=== PATIENT | male | born 1985 | race African-American/Black ===

== ENCOUNTER 2016-11-25 20:09 | Emergency (ER) | payer OTHER ==
[2016-11-25 20:17] VITALS: BP 100/80; PULSE 62; TEMP 98.4; BMI 28.1
[2016-11-25] MEDS ORDERED: IBUPROFEN 600 MG TABLET (FP) PO ONE ×2 (22:18→22:19)
--- NOTE | 2016-11-25 23:08 | PDOC ---
History of Present Illness - General Chief Complaint: Pain, Acute Stated Complaint: FELL INJURED RT LEG Time Seen by Provider: 11/25/16 22:10 History Source: Patient Exam Limitations: No Limitations - History of Present Illness Initial Comments: 11/25/16 23:04 CC knee pain post fall on steps yesterday Occurred: reports: just prior to arrival Severity: reports: mild Pain Location: reports: lower extremity Method of Injury: Yes: fall Past History - Past Medical History Allergies/Adverse Reactions: Allergies Allergy/AdvReac Type Severity Reaction Status Date / Time No Known Allergies Allergy Verified 11/25/16 20:18 Home Medications: Ambulatory Orders Cyclobenzaprine HCl [Flexeril -] 10 mg PO TID PRN #21 tablet 07/23/16 Naproxen [Naprosyn -] 500 mg PO BID PRN #14 tablet 07/23/16 - Surgical History Abdominal Surgery: No Appendectomy: No Cardiac Surgery: No Cholecystectomy: No Gastric Stapling: No GI Surgery: No Lung Surgery: No Neurologic Surgery: No Orthopedic Surgery: No - Immunization History Immunization Up to Date: Yes - Psycho/Social/Smoking Cessation Hx Anxiety: No Suicidal Ideation: No Smoking History: Current some day smoker Have you smoked in the past 12 months: Yes Number of Cigarettes Smoked Daily: 15 Information on smoking cessation initiated: No 'Breaking Loose' booklet given: 07/23/16 Hx Alcohol Use: No Drug/Substance Use Hx: Yes (mariah) Substance Use Type: None Review of Systems - Review of Systems Constitutional: No: Symptoms Reported HEENTM: No: Symptoms Reported, Mouth Swelling Respiratory: No: Symptoms reported Cardiac (ROS): No: Symptoms Reported Musculoskeletal: Yes: Joint Pain, Joint Swelling Neurological: No: Symptoms reported *Physical Exam - Vital Signs Last Vital Signs Temp Pulse Resp BP Pulse Ox 98.4 F 62 20 100/80 98 11/25/16 20:15 11/25/16 20:15 11/25/16 20:15 11/25/16 20:15 11/25/16 20:15 - Physical Exam General Appearance: Yes: Appropriately Dressed. No: Apparent Distress HEENT: positive: TMs Normal, Pharynx Normal Respiratory/Chest: positive: Lungs Clear Musculoskeletal: positive: Other (mild sts to right knee; with tenderness to joint space) ED Treatment Course - RADIOLOGY Radiology Studies Ordered: Category Date Time Status KNEE 2 POS-RIGHT [RAD] Stat Radiology 11/25/16 22:18 Completed - Medications Given in the ED: ED Medications Discontinued Medications Generic Name Dose Route Start Last Admin Trade Name Mame PRN Reason Stop Dose Admin Ibuprofen 600 mg 11/25/16 22:19 11/25/16 22:21 Motrin - PO 11/25/16 22:20 600 mg ONCE ONE Administration Medical Decision Making - Medical Decision Making 11/25/16 23:06 Mild STS to right knee; Xrays note DJD otherwise negative *DC/Admit/Observation/Transfer Diagnosis at time of Disposition: Strain of right knee Qualifiers: Encounter type: initial encounter Qualified Code(s): S86.911A - Strain of unspecified muscle(s) and tendon(s) at lower leg level, right leg, initial encounter - Discharge Dispostion Disposition: HOME Condition at time of disposition: Stable Admit: No - Patient Instructions Additional Instructions: please see local MD 1 week if no better; rest area - Post Discharge Activity Work/School Note: Back to Work
== END 2016-11-25 23:36 | disposition home or self-care (01) ==
LOC: JERFT 20:09
DX: S86.811A Strain of other muscle(s) and tendon(s) at lower leg level, right leg, initial encounter (principal); W10.8XXA Fall (on) (from) other stairs and steps, initial encounter; Y93.89 Activity, other specified; Y92.89 Other specified places as the place of occurrence of the external cause; M17.11 Unilateral primary osteoarthritis, right knee
CPT/HCPCS: 73560-TC-RT; 99281-25

== ENCOUNTER 2017-01-15 04:06 | Emergency (ER) | payer OTHER ==
[2017-01-15 04:59] VITALS: BP 114/66; PULSE 77; TEMP 99; BMI 28.1
[2017-01-15] MEDS ORDERED: IBUPROFEN 600 MG TABLET (FP) PO ONE ×2 (05:25→05:48)
--- NOTE | 2017-01-15 05:25 | PDOC ---
History of Present Illness - General Chief Complaint: Cold Symptoms Stated Complaint: BODY ACHES Time Seen by Provider: 01/15/17 04:48 - History of Present Illness Initial Comments: 01/15/17 05:25 CHIEF COMPLAINT: body aches, fatigue, URI symptoms HISTORY OF PRESENT ILLNESS: 31 yo M with no PMH presents to ED "feeling exhausted." Patient reports that his symptoms began yesterday and include runny nose, dry cough, and "my whole body hurts." He states that he has been taking Theraflu, "2 pills of Motrin" and Dayquil and Nyquil with little relief. He denies any shortness of breath, chest pain, nausea, vomiting or diarrhea. He reports that he goes to sleep "and wakes up wet, and then I shower, go back to sleep, and wake up wet again." No recent travel or sick contacts. PAST MEDICAL HISTORY: Denies past medical history FAMILY HISTORY: Denies SOCIAL HISTORY: Current smoker 10 cigs daily. Denies alcohol, illicit drug use. SURGICAL HISTORY: Denies ALLERGIES: No known drug allergies REVIEW OF SYSTEMS General/Constitutional: Denies fever or chills. Denies weakness, weight change. HEENT: Denies change in vision. Denies ear pain or discharge. Denies sore throat. Cardiovascular: Denies chest pain or shortness of breath. Respiratory: Cough x 1 day. Denies wheezing, or hemoptysis. Gastrointestinal: Denies nausea, vomiting, diarrhea or constipation. Denies rectal bleeding. Genitourinary: Denies dysuria, frequency, or change in urination. Musculoskeletal: Denies joint or muscle swelling or pain. Denies neck or back pain. Skin and breasts: Denies rash or easy bruising. PHYSICAL EXAM General Appearance: Well-appearing, appropriately dressed. No apparent distress , no intoxication. HEENT: EOMI, PERRLA, normal ENT inspection, normal voice, TMs normal, pharynx normal. No conjunctival pallor. No photophobia, scleral icterus. Neck: Supple. Trachea midline. No tenderness, rigidity, carotid bruit, stridor , lymphadenopathy, or thyromegaly. Respiratory/Chest: Lungs CTAB. Cardiovascular: RRR. S1, S2. Gastrointestinal/Abdominal: Normal bowel sounds. Abdomen soft, non-distended. No tenderness or rebound tenderness. No organomegaly, pulsatile mass, guarding , hernia, hepatomegaly, splenomegaly. Musculoskeletal/Extremities: Normal inspection. FROM of all extremities, normal capillary refill. Pelvis Stable. No CVA tenderness. No tenderness to extremities, pedal edema, swelling, erythema or deformity. Integumentary: Appropriate color, dry, warm. No cyanosis, erythema, jaundice or rash Neurologic: vault attendant II-XII intact. Fully oriented, alert. Appropriate mood/affect. Motor strength 5/5. No appreciable EOM palsy, facial droop or sensory deficit. 01/15/17 05:36 Past History - Past Medical History Allergies/Adverse Reactions: Allergies Allergy/AdvReac Type Severity Reaction Status Date / Time No Known Allergies Allergy Verified 01/15/17 05:04 Home Medications: Ambulatory Orders Cyclobenzaprine HCl [Flexeril -] 10 mg PO TID PRN #21 tablet 07/23/16 Naproxen [Naprosyn -] 500 mg PO BID PRN #14 tablet 07/23/16 Naproxen [Naprosyn -] 500 mg PO BID #14 tablet 11/25/16 Dextromethorphan HBr [Robitussin] 15 mg PO QID PRN #20 capsule 01/15/17 Ibuprofen [Motrin -] 600 mg PO TID PRN #30 tablet 01/15/17 Loratadine [Claritin -] 10 mg PO DAILY #30 tablet 01/15/17 Pseudoephedrine HCl [Sudafed 12-Hour] 120 mg PO BID #20 tablet.er 01/15/17 - Surgical History Abdominal Surgery: No Appendectomy: No Cardiac Surgery: No Cholecystectomy: No Gastric Stapling: No GI Surgery: No Lung Surgery: No Neurologic Surgery: No Orthopedic Surgery: No - Immunization History Immunization Up to Date: Yes - Psycho/Social/Smoking Cessation Hx Anxiety: No Suicidal Ideation: No Smoking History: Current every day smoker Have you smoked in the past 12 months: Yes Number of Cigarettes Smoked Daily: 10 Information on smoking cessation initiated: No 'Breaking Loose' booklet given: 07/23/16 Hx Alcohol Use: No Drug/Substance Use Hx: No Substance Use Type: None *Physical Exam - Vital Signs Last Vital Signs Temp Pulse Resp BP Pulse Ox 99.0 F 77 14 114/66 98 01/15/17 04:56 01/15/17 04:56 01/15/17 04:56 01/15/17 04:56 01/15/17 04:56 Medical Decision Making - Medical Decision Making 01/15/17 05:40 31 yo M with no PMH presents to ED "feeling exhausted." Patient reports that his symptoms began yesterday and include runny nose, dry cough, and "my whole body hurts." Patient exam unremarkable. Likely acute viral illness. -Clariting 10 mg daily -Sudafed -Dextromethorphan Advised patient to take medications as prescribed and get plenty of rest and fluids and to f/u with PCP if symptoms persist. Advised patient of signs and symptoms for return to ER; patient verbalized understanding and agrees to plan. *DC/Admit/Observation/Transfer Diagnosis at time of Disposition: Viral syndrome - Discharge Dispostion Admit: No - Prescriptions Prescriptions: Loratadine [Claritin -] 10 mg PO DAILY #30 tablet Ibuprofen [Motrin -] 600 mg PO TID PRN #30 tablet PRN Reason: body aches/fever Dextromethorphan HBr [Robitussin] 15 mg PO QID PRN #20 capsule PRN Reason: Cough Pseudoephedrine HCl [Sudafed 12-Hour] 120 mg PO BID #20 tablet.er - Referrals Referrals: Stacey Diallo MD [Primary Care Provider] - - Patient Instructions Printed Discharge Instructions: DI for Viral Syndrome Additional Instructions: Please take medications as prescribed. As discussed, you need to get plenty of rest and fluids. If your symptoms persist past 7-10 days, please follow up with Dr. Humphries for further evaluation. If you develop fever that does not go down Motrin, nausea, vomiting, diarrhea, or any new or worsening symptoms, please return to the ER. - Post Discharge Activity Work/School Note: Back to Work
== END 2017-01-15 06:17 | disposition home or self-care (01) ==
LOC: JER 04:06
DX: B34.9 Viral infection, unspecified (principal)
CPT/HCPCS: 99281-25

== ENCOUNTER 2017-12-19 02:03 | Emergency (ER) | payer SELFPAY ==
--- NOTE | 2017-12-19 02:32 | PDOC ---
Attending Attestation - Resident Resident Name: Radhames Nieto - ED Attending Attestation I have performed the following: I have examined & evaluated the patient, The case was reviewed & discussed with the resident, I agree w/resident's findings & plan, Exceptions are as noted - HPI HPI: 12/19/17 06:08 Mr Pierre is a 32 yo M no significant past medical history He reports body aches and chills x 1 day. (+) subjective fevers and diaphoresis cough with yellow sputum He has noticed chest burning, particularly with cogh Has not taken motrin or tylenol No ill contacts No recent travel - Physicial Exam PE: 12/19/17 06:17 GEN: NAD, awake, alert and laying in bed HEENT: EOMI, LARY, moist mucosa, no erythema NECK: Soft, no lymphadenopathy LUNGS: CTA b/l, no wheezes, rales, rhonchi noted CARDIAC: RRR, no murmurs appreciated ABD: Soft, NT/ND, no guarding, no rebound, no masses appreciated EXT: No edema, DP pulses 2+ SKIN: No rashes or lesions seen - Medical Decision Making 12/19/17 06:17 Laboratory Tests 12/19/17 12/19/17 03:29 03:29 WBC 10.5 H D Hgb 13.3 Hct 39.4 Plt Count 217 BUN 6 L D Creatinine 0.9 CXR (prelim): no consolidation Influenza negative Pt given IV hydration and motrin Will discharge to home Likely viral syndrome Follow up with PMD
[2017-12-19] MEDS ORDERED: RANITIDINE HCL 150 MG TABLET (FP) PO ONE (02:36)
[2017-12-19 02:40] VITALS: BMI 28.1
--- NOTE | 2017-12-19 02:44 | PDOC ---
History of Present Illness - General Chief Complaint: Respiratory Stated Complaint: BODY ACHES,CHILLS Time Seen by Provider: 12/19/17 02:22 - History of Present Illness Initial Comments: 12/19/17 02:38 32yo M with no significant history who presents today for body aches and chills. He reports this started about 1 day ago with some subjective fevers and sweating at night. Pt reports he took a shower and then continued to be diaphoretic. In addition, pt endorses yellow sputum production, diarrhea without blood, and some substernal burning chest discomfort. Pt states he hasn' t been taking anything at home for his fevers. Pt denies any sick contacts currently. Pt denies headaches, n/v, ear pain, SOB, wheezing, palpitations, abdominal pain, dysuria, and polyuria Past History - Past Medical History Allergies/Adverse Reactions: Allergies Allergy/AdvReac Type Severity Reaction Status Date / Time No Known Allergies Allergy Verified 12/19/17 02:39 Home Medications: Ambulatory Orders Cyclobenzaprine HCl [Flexeril -] 10 mg PO TID PRN #21 tablet 07/23/16 Naproxen [Naprosyn -] 500 mg PO BID PRN #14 tablet 07/23/16 Naproxen [Naprosyn -] 500 mg PO BID #14 tablet 11/25/16 Dextromethorphan HBr [Robitussin] 15 mg PO QID PRN #20 capsule 01/15/17 Ibuprofen [Motrin -] 600 mg PO TID PRN #30 tablet 01/15/17 Loratadine [Claritin -] 10 mg PO DAILY #30 tablet 01/15/17 Pseudoephedrine HCl [Sudafed 12-Hour] 120 mg PO BID #20 tablet.er 01/15/17 - Surgical History Abdominal Surgery: No Appendectomy: No Cardiac Surgery: No Cholecystectomy: No Gastric Stapling: No GI Surgery: No Lung Surgery: No Neurologic Surgery: No Orthopedic Surgery: No - Immunization History Immunization Up to Date: Yes - Suicide/Smoking/Psychosocial Hx Smoking History: Current every day smoker Have you smoked in the past 12 months: Yes Number of Cigarettes Smoked Daily: 10 'Breaking Loose' booklet given: 07/23/16 Hx Alcohol Use: No Drug/Substance Use Hx: No Substance Use Type: None Review of Systems - Review of Systems Constitutional: Yes: Chills, Fever. No: Loss of Appetite HEENTM: Yes: See HPI, Nose Congestion. No: Blurred Vision, Ear Pain, Throat Pain Respiratory: Yes: Productive cough. No: Shortness of Breath, Wheezing Cardiac (ROS): No: Chest Pain, Lightheadedness, Palpitations ABD/GI: Yes: Diarrhea. No: Constipated, Nausea, Vomiting, Abdominal cramping : No: Dysuria, Frequency, Flank Pain Musculoskeletal: No: Back Pain, Neck Pain Integumentary: No: Rash Neurological: No: Headache, Numbness, Tingling, Dizziness *Physical Exam - Physical Exam Comments: 12/19/17 02:46 GEN: NAD, awake, alert and laying in bed HEENT: EOMI, LARY, moist mucosa, no erythema and no plaques in posterior oropharynx NECK: Soft, no lymphadenopathy LUNGS: CTA b/l, no wheezes, rales, rhonchi noted CARDIAC: RRR, no murmurs appreciated ABD: Soft, NT/ND, no guarding, no rebound, no masses appreciated EXT: No edema, DP pulses 2+ SKIN: No rashes or lesions seen Heart Score/ECG Review #1 General ECG Interpretation: Sinus Rhythm, Normal Rate, Normal Intervals, No acute ischemic changes 12/19/17 04:06 Deep R wave in V2-V4 noted. QTc 405ms ED Treatment Course - LABORATORY CBC & Chemistry Diagram: 12/19/17 03:29 12/19/17 03:29 Medical Decision Making - Medical Decision Making 12/19/17 02:44 Highly suspicious for viral syndrome --CBC with diff --CMP --Flu swab (recent resurgence of Influenza B) Due to epigastric burning sensation --EKG despite doubting any ACS --Zantac PO 12/19/17 04:[address] abnormalities CBC with WBC 10.4 On reassessment pt's substernal burning has gotten better with zantac; pt feels dehydrated 12/19/17 04:14 Preliminary rapid flu negative for A and B 12/19/17 04:38 CXR grossly normal; no opacities or infiltrates noted 12/19/17 05:16 Motrin given for body aches. Can be discharged home. Work note given for Thursday *DC/Admit/Observation/Transfer Diagnosis at time of Disposition: Viral syndrome - Discharge Dispostion Disposition: HOME Condition at time of disposition: Stable Admit: No - Referrals Referrals: Stacey Diallo MD [Primary Care Provider] - - Patient Instructions Additional Instructions: You were seen in the ED for your fevers and body aches which are due to a virus. Your chest Xray did not show any pneumonia Your flu swab showed no flu Your EKG was normal and unchanged from your previous one If you feel feverish again please take over the counter tylenol as directed Continue to stay hydrated and rest to get over your virus If your symptoms worsen, please feel free to come back to the ED - Post Discharge Activity Forms/Work/School Notes: Back to Work
[2017-12-19] MEDS ORDERED: RANITIDINE HCL 150 MG TABLET (FP) ONE (03:09)
[2017-12-19 03:52] LABS: BASO % 0.6 % (0-2.0); EOS % 1.6 % (0-4.5); HEMATOCRIT 39.4 % (35.4-49); HEMOGLOBIN 13.3 GM/dL (11.7-16.9); LYMPH % 9.8 % (8-40); MCH 29.1 pg (25.7-33.7); MCHC 33.9 g/dl (32.0-35.9); MEAN PLT VOLUME 8.1 fl (7.5-11.1); MONO % 6.2 % (3.8-10.2); NEUT % 81.8 % (42.8-82.8); PLATELET COUNT 217 K/MM3 (134-434); RBC 4.59 M/mm3 (4.00-5.60); RDW 13.6 % (11.9-15.9); WHITE BLOOD COUNT 10.5 K/mm3 (4.0-10.0)
[2017-12-19] MEDS ORDERED: SODIUM CHLORIDE 1,000 ML IV STA (04:03)
[2017-12-19 04:17] LABS: ALBUMIN 3.7 g/dl (3.4-5.0); ANION GAP 6 (8-16); BILIRUBIN,TOTAL 0.8 mg/dL (0.2-1.0); BLOOD UREA NITROGEN 6 mg/dL (7-18); CALCIUM 8.7 mg/dL (8.5-10.1); CHLORIDE 105 mmol/L (98-107); CO2 30 mmol/L (21-32); CREATININE 0.9 mg/dL (0.7-1.3); GLUCOSE,RANDOM 89 mg/dL (74-106); POTASSIUM 3.4 mmol/L (3.5-5.1); SGOT/AST 21 U/L (15-37); SGPT/ALT 16 U/L (12-78); SODIUM 141 mmol/L (136-145); TOT PROT 7.2 g/dl (6.4-8.2)
[2017-12-19 04:18] LABS: ALK PHOS 48 U/L (45-117)
[2017-12-19] MEDS ORDERED: IBUPROFEN 600 MG TABLET (FP) PO ONE ×2 (05:01→05:12)
[2017-12-19 05:28] VITALS: BP 104/60; PULSE 70; TEMP 98.4
--- NOTE | 2017-12-19 09:50 | EKG ---
Test Reason : Blood Pressure : / mmHG Vent. Rate : 065 BPM Atrial Rate : 065 BPM P-R Int : 140 ms QRS Dur : 078 ms QT Int : 390 ms P-R-T Axes : 076 240 055 degrees QTc Int : 405 ms NORMAL SINUS RHYTHM RIGHT SUPERIOR AXIS DEVIATION ABNORMAL ECG NO PREVIOUS ECGS AVAILABLE Confirmed by AMANDA AHUMADA MD ([id number]) on 12/19/2017 9:50:03 AM Referred By: Confirmed By:AMANDA AHUMADA MD
== END 2017-12-19 05:33 | disposition home or self-care (01) ==
LOC: JER 02:03
PROC: 3E0337Z Introduction of Electrolytic and Water Balance Substance into Peripheral Vein, Percutaneous Approach (ICD-10-PCS; principal; 2017-12-19)
DX: B34.9 Viral infection, unspecified (principal); F17.210 Nicotine dependence, cigarettes, uncomplicated
CPT/HCPCS: 36415; 71045-TC-FY; 80053; 85025; 87804; 93005; 93010; 99282-25; J7030

== ENCOUNTER 2018-05-16 19:19 | Emergency (ER) | payer SELFPAY ==
[2018-05-16 19:23] VITALS: BP 94/51; PULSE 72; TEMP 98.4; BMI 25.0
[2018-05-16] MEDS ORDERED: CLINDAMYCIN HCL 150 MG CAPSULE (FP) PO ONE (20:06)
[2018-05-16] MEDS ORDERED: KETOROLAC TROMETHAMINE 60 MG/2 ML VIAL IM ONE (20:07)
--- NOTE | 2018-05-16 20:11 | PDOC ---
History of Present Illness - General Chief Complaint: Abscess Boil Stated Complaint: ABSCESS BOIL Time Seen by Provider: 05/16/18 19:32 History Source: Patient Exam Limitations: Clinical Condition - History of Present Illness Initial Comments: 05/16/18 20:05 Patient with no sig past medical history present with abscess to left chin area which he reported started as a pimple and has worsened in the last 3 days. Patient believe is started as an ingrown hair from the [place]. Denies fever or any other symptoms Timing/Duration: reports: getting worse Severity: Yes: moderate Location: reports: face Past History - Past Medical History Allergies/Adverse Reactions: Allergies Allergy/AdvReac Type Severity Reaction Status Date / Time No Known Allergies Allergy Verified 05/16/18 19:23 Home Medications: Ambulatory Orders Clindamycin [Cleocin -] 300 mg PO TID #21 capsule 05/16/18 Ibuprofen 800 mg PO Q8H PRN #20 tablet 05/16/18 COPD: No - Surgical History Abdominal Surgery: No Appendectomy: No Cardiac Surgery: No Cholecystectomy: No Gastric Stapling: No GI Surgery: No Lung Surgery: No Neurologic Surgery: No Orthopedic Surgery: No - Immunization History Immunization Up to Date: Yes - Suicide/Smoking/Psychosocial Hx Smoking History: Never smoked Have you smoked in the past 12 months: Yes Number of Cigarettes Smoked Daily: 10 'Breaking Loose' booklet given: 07/23/16 Hx Alcohol Use: No Drug/Substance Use Hx: No Substance Use Type: None Review of Systems - Review of Systems Able to Perform ROS?: Yes Is the patient limited Maldivian proficient: No Constitutional: No: Chills, Fever HEENTM: Yes: Other (abscess to left chin area) Respiratory: No: Symptoms reported Cardiac (ROS): No: Symptoms Reported ABD/GI: No: Symptoms Reported Musculoskeletal: Yes: Muscle Pain (over left chin area of abscess) Integumentary: Yes: Lumps (abscess to left chin area), Other All Other Systems: Reviewed and Negative *Physical Exam - Vital Signs Last Vital Signs Temp Pulse Resp BP Pulse Ox 98.4 F 72 18 94/51 97 05/16/18 19:21 05/16/18 19:21 05/16/18 19:21 05/16/18 19:21 05/16/18 19:21 - Physical Exam Comments: 05/16/18 20:09 GENERAL: Well developed, well nourished. Awake and alert. No acute distress. HEENT: 4 cm hard fluctuant abscess to left lateral side of chin mild erythema over abscess.normocephalic, atraumatic. NECK: Supple. Full ROM. CARDIOVASCULAR: Regular rate and rhythm. No murmurs, rubs, or gallops. Distal pulses are 2+ and symmetric. PULMONARY: No evidence of respiratory distress. Lungs clear to auscultation bilaterally. No wheezing, rales or rhonchi. ABDOMINAL: Soft. Non-tender. Non-distended. No rebound or guarding. No organomegaly. Normoactive bowel sounds. SKIN: 4 cm hard fluctuanct abscess to left lateral side of chin mild erythema over abscess. Warm and dry. Normal capillary refill. No rashes. No jaundice. NEUROLOGICAL: Alert, awake, appropriate. Gait is normal without ataxia. PSYCHIATRIC: Cooperative. Good eye contact. Appropriate mood and affect. General Appearance: Yes: Nourished, Appropriately Dressed. No: Apparent Distress Procedures - Incision and Drainage I&D Site: Left: Other (lateral chin abscess) Betadine cleansed: Yes Anesthesia: 1% Lidocaine Volume(ml): 3 Blade Size: 11 Attempts: 1 Iodinated Packin/2 in Plain Packing: Yes Complications: none Dressing: Yes Progress: 05/16/18 20:12 4 cm had clots when abscess to lateral side of left chin clean with Betadine. Abscess infiltrated with 1% lidocaine. Incision made with #11 blade. Purulent drainage obtained from abscess. Wound culture taken. Wound packing place and abscess. Abscess covered with 4 x 4 gauze and adhesive tape pressure dressing. Patient tolerated procedure well Medical Decision Making - Medical Decision Making 05/16/18 20:13 Patient with no significant past medical history three-day history of worsening abscess to left lateral chin. I&D of abscess done. One dose of clindamycin 300 mg given. Toradol 60 mg IM for pain. Patient discharged home on Clinda 3 times a day for week. Patient to follow-up in 2 days for wound packing removal *DC/Admit/Observation/Transfer Diagnosis at time of Disposition: Facial abscess, Carbuncle of face - Discharge Dispostion Disposition: HOME Condition at time of disposition: Stable Decision to Admit order: No - Prescriptions Prescriptions: Clindamycin [Cleocin -] 300 mg PO TID #21 capsule Ibuprofen 800 mg PO Q8H PRN #20 tablet PRN Reason: pain - Referrals - Patient Instructions Printed Discharge Instructions: DI for Incision and Drainage of a Skin Abscess Additional Instructions: Take prescribed medications as prescribed. Apply heat to abscess area 2-3 times a day for 5-10 minutes., To emergency room in 2 days for packing removal. - Post Discharge Activity Forms/Work/School Notes: Back to Work
[2018-05-16] MEDS ORDERED: KETOROLAC TROMETHAMINE 60 MG/2 ML VIAL ONE (20:12)
[2018-05-16] MEDS ORDERED: CLINDAMYCIN HCL 150 MG CAPSULE (FP) ONE (20:14)
== END 2018-05-16 20:20 | disposition home or self-care (01) ==
LOC: JERFT 19:19
PROC: 0H91XZZ Drainage of Face Skin, External Approach (ICD-10-PCS; principal; 2018-05-16)
DX: L02.01 Cutaneous abscess of face (principal); L02.03 Carbuncle of face
CPT/HCPCS: 87070; 87205; 99281-25

== ENCOUNTER 2018-05-18 21:27 | Emergency (ER) | payer SELFPAY ==
--- NOTE | 2018-05-18 21:31 | PDOC ---
Rapid Medical Evaluation Chief Complaint: Wound Time Seen by Provider: 05/18/18 21:29 Medical Evaluation: Allergies Allergy/AdvReac Type Severity Reaction Status Date / Time No Known Allergies Allergy Verified 05/16/18 19:23 05/18/18 21:30 I have performed a brief in person evaluation of this patient. The patient presents with a CC of: Wound rck HPI: Pt is a 32 YO male who is here for a f/u on a facial abscess on the left side. Pt is currently taking abx. PE: Skin: 6 cm abscess to left lower mandible. Heart: RRR Lungs: Clear MS: Moves all extremities without difficulty Neuro: Appropriate affect Psych: appropriate affect I have ordered: nothing ordered at this time. The patient will proceed to the ED for further evaluation. Discharge Disposition - Diagnosis Abscess - Referrals - Patient Instructions - Post Discharge Activity
[2018-05-18 21:33] VITALS: BP 101/49; PULSE 59; TEMP 98; BMI 26.6
--- NOTE | 2018-05-18 22:30 | PDOC ---
Suture Removal/Wound Check HPI - History of Present Illness Chief Complaint: Wound Stated Complaint: FOLLOW UP Time Seen by Provider: 05/18/18 21:29 History Source: Yes: Patient Exam Limitations: Yes: No Limitations Treated at: [facility] ED - Previous ED Treatment Type of procedure performed on last visit: Yes: I&D of Abscess Past History - Travel Traveled outside of the country in the last 30 days: No Close contact w/someone who was outside of country & ill: No - Past Medical History Allergies/Adverse Reactions: Allergies Allergy/AdvReac Type Severity Reaction Status Date / Time No Known Allergies Allergy Verified 05/16/18 19:23 Home Medications: Ambulatory Orders Clindamycin [Cleocin -] 300 mg PO TID #21 capsule 05/16/18 Ibuprofen 800 mg PO Q8H PRN #20 tablet 05/16/18 COPD: No - Surgical History Abdominal Surgery: No Appendectomy: No Cardiac Surgery: No Cholecystectomy: No Gastric Stapling: No GI Surgery: No Lung Surgery: No Neurologic Surgery: No Orthopedic Surgery: No - Immunization History Immunization Up to Date: Yes - Suicide/Smoking/Psychosocial Hx Smoking History: Current every day smoker Have you smoked in the past 12 months: Yes Number of Cigarettes Smoked Daily: 20 Information on smoking cessation initiated: No 'Breaking Loose' booklet given: 07/23/16 Hx Alcohol Use: No Drug/Substance Use Hx: No Substance Use Type: None Suture Removal/Wound Check PE - Physical Exam Laceration/Wound Check Symptoms: reports: Discharge (sero sanguanous), Improved Current Severity Level: None Maximum Severity Level: None Location of Laceration/Wound: left: Jaw (I&D two days ago, packin in place with drainage) *Review of Systems - Review of Systems Able to Perform ROS?: Yes Constitutional: No: Chills, Fever, Weakness Integumentary: Yes: Other (Packin present to L jaw from I&D) *Physical Exam - Vital Signs Last Vital Signs Temp Pulse Resp BP Pulse Ox 98.0 F 59 L 18 101/49 100 05/18/18 21:30 05/18/18 21:30 05/18/18 21:30 05/18/18 21:30 05/18/18 21:30 - Physical Exam General Appearance: Yes: Nourished, Appropriately Dressed. No: Apparent Distress Neck: positive: Trachea midline, Normal Thyroid, Supple. negative: Tender, Rigid, Decreased range of motion, Lymphadenopathy (R), Lymphadenopathy (L) Integumentary: positive: Normal Color, Dry, Warm, Swelling (and induration to the L jaw near I&D site) Neurologic: positive: Fully Oriented, Alert, Normal Mood/Affect, Normal Response Medical Decision Making - Medical Decision Making 05/18/18 22:25 Patient is a 32-year-old male who presents to emergency department today for a wound check. Patient was seen 2 days ago for an incision and drainage to the left jaw. Packing intact to I&D site. Patient with a mixture of purulent and bloody drainage. Patient notes that the size of the I&D site has significantly decreased from previous visit. Packing removed emergency department and the I&D site was flushed with normal saline. No more purulent drainage noted. Patient still with induration to the left lower jaw around the I&D site. Patient states he only picked up his antibiotics today. Strict return precautions given as patient only on 1 day of antibiotics. I discussed the physical exam findings, ancillary test results and final diagnoses with the patient. I answered all of the patient's questions. The patient was satisfied with the care received and felt comfortable with the discharge plan and treatment plan. The Patient agrees to follow up with the primary care physician/specialist within 24-72 hours. Return precautions were given. *DC/Admit/Observation/Transfer Diagnosis at time of Disposition: Wound check, abscess - Discharge Dispostion Disposition: HOME Condition at time of disposition: Stable Decision to Admit order: No - Referrals Referrals: Will Iqbal MD [Staff Physician] - - Patient Instructions Printed Discharge Instructions: DI for Skin Abscess Additional Instructions: You have the packing removed from you're abscess today. Please continue taking your antibiotics as previously prescribed. Take the entire dose even if you feel better. He may take Motrin 600 mg every 6 hours as needed for pain. Please follow-up with your primary care doctor this week. Return to emergency department if you have worsening pain around the area, increased purulent drainage despite antibiotic treatment, increased swelling to the site, or if you have any changes in her symptoms. - Post Discharge Activity Forms/Work/School Notes: Back to Work
== END 2018-05-18 22:38 | disposition home or self-care (01) ==
LOC: JERFT 21:27
DX: Z48.817 Encounter for surgical aftercare following surgery on the skin and subcutaneous tissue (principal); Z48.01 Encounter for change or removal of surgical wound dressing
CPT/HCPCS: 99281-25

== ENCOUNTER 2018-10-26 11:51 | Emergency (ER) | payer SELFPAY ==
[2018-10-26 12:08] VITALS: BP 101/59; PULSE 58; TEMP 97.4; BMI 29.0
--- NOTE | 2018-10-26 14:04 | PDOC ---
History of Present Illness - General Chief Complaint: Pain Stated Complaint: LT FOOFT INJURY Time Seen by Provider: 10/26/18 12:54 - History of Present Illness Initial Comments: 10/26/18 13:58 33-year-old male presents for evaluation of left foot pain after he describes an inversion injury which occurred last night while walking down steps. He points the lateral aspect of the left foot as the area of his discomfort. Past History - Past Medical History Allergies/Adverse Reactions: Allergies Allergy/AdvReac Type Severity Reaction Status Date / Time No Known Allergies Allergy Verified 05/16/18 19:23 Home Medications: Ambulatory Orders Clindamycin [Cleocin -] 300 mg PO TID #21 capsule 05/16/18 Ibuprofen 800 mg PO Q8H PRN #20 tablet 05/16/18 Pantoprazole Sodium [Protonix -] 40 mg PO DAILY #14 tablet.ec 05/20/18 COPD: No - Surgical History Abdominal Surgery: No Appendectomy: No Cardiac Surgery: No Cholecystectomy: No Gastric Stapling: No GI Surgery: No Lung Surgery: No Neurologic Surgery: No Orthopedic Surgery: No - Immunization History Immunization Up to Date: Yes - Suicide/Smoking/Psychosocial Hx Smoking History: Current every day smoker Have you smoked in the past 12 months: No Number of Cigarettes Smoked Daily: 10 Information on smoking cessation initiated: No 'Breaking Loose' booklet given: 07/23/16 Hx Alcohol Use: No Drug/Substance Use Hx: Yes ([place]) Substance Use Type: None Review of Systems - Review of Systems Musculoskeletal: Yes: See HPI, Joint Pain *Physical Exam - Vital Signs Last Vital Signs Temp Pulse Resp BP Pulse Ox 97.4 F L 58 L 20 101/59 L 97 10/26/18 12:04 10/26/18 12:04 10/26/18 12:04 10/26/18 12:04 10/26/18 12:04 - Physical Exam Comments: 10/26/18 13:59 Left foot skin color and temperature are normal there is full knee range of motion and ankle range of motion. There is no tenderness about the knee proximal fibula or along its distal coarse. No tenderness about the medial or lateral malleolus base of the fifth metatarsal navicular or ATFL. There is mild tenderness over the third fourth and fifth MTPJ's there are no gross sensorimotor deficits. He is neurovascularly intact. Moderate Sedation - Procedure Monitoring Vital Signs: Procedure Monitoring Vital Signs Temperature 97.4 F L 10/26/18 12:04 Pulse Rate 58 L 10/26/18 12:04 Respiratory Rate 20 10/26/18 12:04 Blood Pressure 101/59 L 10/26/18 12:04 O2 Sat by Pulse Oximetry (%) 97 10/26/18 12:04 ED Treatment Course - RADIOLOGY Radiology Studies Ordered: Category Date Time Status FOOT-LEFT [RAD] Stat Radiology 10/26/18 12:55 Taken Medical Decision Making - Medical Decision Making 10/26/18 14:00 No evidence of fracture trauma or destructive process on radiograph today. This is a foot sprain. Weight-bear as tolerated with use of a Simeon wrap Bow shoe as well as crutches. Follow-up with or that one to 2 days for further evaluation and treatment options. *DC/Admit/Observation/Transfer Diagnosis at time of Disposition: Sprain of foot, left - Discharge Dispostion Disposition: HOME Condition at time of disposition: Stable Decision to Admit order: No - Referrals Referrals: Ritesh Woods DO [Staff Physician] - - Patient Instructions Printed Discharge Instructions: DI for Foot Sprain Additional Instructions: He may weight-bear as tolerated with use of crutches and the Bow shoe. Please follow-up with orthopedic surgery in 2-3 days for further evaluation and treatment options. I have reached out orthopedic surgery and they are expecting her call and will continue the soonest available appointment at your convenience. Tylenol Motrin as directed for pain - Post Discharge Activity Forms/Work/School Notes: Back to Work
== END 2018-10-26 14:11 | disposition home or self-care (01) ==
LOC: JERFT 11:51
PROC: 2W3TX1Z Immobilization of Left Foot using Splint (ICD-10-PCS; principal; 2018-10-26)
PROC: 2W3RX1Z Immobilization of Left Lower Leg using Splint (ICD-10-PCS; 2018-10-26)
DX: S93.602A Unspecified sprain of left foot, initial encounter (principal); X50.1XXA Overexertion from prolonged static or awkward postures, initial encounter; Y93.89 Activity, other specified; Y92.89 Other specified places as the place of occurrence of the external cause; Y99.8 Other external cause status
CPT/HCPCS: 73630-TC-LT; 99281-25

== ENCOUNTER 2019-08-23 01:23 | Emergency (ER) | payer OTHER ==
[2019-08-23 02:55] VITALS: BP 104/54; PULSE 61; TEMP 98.1; BMI 29.7
--- NOTE | 2019-08-23 03:12 | PDOC ---
*Physical Exam - Vital Signs Last Vital Signs Temp Pulse Resp BP Pulse Ox 98.1 F 61 20 104/54 L 96 08/23/19 01:23 08/23/19 01:23 08/23/19 01:23 08/23/19 01:23 08/23/19 01:23 Medical Decision Making - Medical Decision Making 08/23/19 03:12 Patient seen by the advanced practice provider under my direct supervision. Ancillary testing reviewed as necessary. I agree with plan as outlined by the advanced practice provider. Discharge - Discharge Information Problems reviewed: Yes Clinical Impression/Diagnosis: Thigh abscess Condition: Fair Disposition: HOME - Additional Discharge Information Prescriptions: Cephalexin 250 mg PO QID #30 capsule Sulfamethoxazole/Trimethoprim [Bactrim Ds -] 1 tab PO BID #14 tablet - Follow up/Referral - Patient Discharge Instructions Patient Printed Discharge Instructions: DI for Incision and Drainage of a Skin Abscess Additional Instructions: Keep dressing on overnight. Warm compresses 15-20 minutes at a time 3-4 times a day. warm showers. keep packing in place. you may change the outside guaze if it gets soiled Complete course of antibiotic therapy as prescribed Return to ED 2 days for a wound evaluation and pack removal. Return to ED immediately if any signs of infection such as fever, increasing pain, swelling, streaking redness, or if symptoms worsen or any concerns. - Post Discharge Activity Work/Back to School Note: Back to Work
--- NOTE | 2019-08-23 03:48 | PDOC ---
History of Present Illness - General Chief Complaint: Abscess Boil Stated Complaint: PAIN TO RIGHT LEG Time Seen by Provider: 08/23/19 03:02 History Source: Patient - History of Present Illness Initial Comments: 08/23/19 03:12 33 year old male with right inner thigh abscess reports started after shaving the legs. denies fever/ chills./ Past History - Past Medical History Allergies/Adverse Reactions: Allergies Allergy/AdvReac Type Severity Reaction Status Date / Time No Known Allergies Allergy Verified 08/23/19 02:43 Home Medications: Ambulatory Orders Clindamycin [Cleocin -] 300 mg PO TID #21 capsule 05/16/18 Ibuprofen 800 mg PO Q8H PRN #20 tablet 05/16/18 Pantoprazole Sodium [Protonix -] 40 mg PO DAILY #14 tablet.ec 05/20/18 Cephalexin 250 mg PO QID #30 capsule 08/23/19 Sulfamethoxazole/Trimethoprim [Bactrim Ds -] 1 tab PO BID #14 tablet 08/23/19 COPD: No - Surgical History Abdominal Surgery: No Appendectomy: No Cardiac Surgery: No Cholecystectomy: No Gastric Stapling: No GI Surgery: No Lung Surgery: No Neurologic Surgery: No Orthopedic Surgery: No - Immunization History Immunization Up to Date: Yes - Psycho Social/Smoking Cessation Hx Smoking History: Never smoked Have you smoked in the past 12 months: No Number of Cigarettes Smoked Daily: 10 'Breaking Loose' booklet given: 07/23/16 Hx Alcohol Use: No Drug/Substance Use Hx: No Substance Use Type: None *Physical Exam - Vital Signs Last Vital Signs Temp Pulse Resp BP Pulse Ox 98.1 F 61 20 104/54 L 96 08/23/19 01:23 08/23/19 01:23 08/23/19 01:23 08/23/19 01:23 08/23/19 01:23 - Physical Exam General Appearance: Yes: Appropriately Dressed Musculoskeletal: positive: Other (Dime size fluctuant mass to the right inner thigh. No surrounding erythema, streaking.) Neurologic: positive: Fully Oriented, Alert Procedures - Consent Consent obtained: Verbal - Incision and Drainage I&D Site: Right: Leg (upper inner thigh) Betadine cleansed: Yes Anesthesia: 1% Lidocaine Blade Size: 11 Iodinated Packin/4 in Plain Packing: Yes Complications: none Dressing: Yes Progress: 08/23/19 04:38 copious pus drainage. wound packed ED Progress Note - Progress Note Progress Note: thigh abscess P: See procedure note Discharge - Discharge Information Problems reviewed: Yes Clinical Impression/Diagnosis: Thigh abscess Condition: Fair Disposition: HOME - Additional Discharge Information Prescriptions: Cephalexin 250 mg PO QID #30 capsule Sulfamethoxazole/Trimethoprim [Bactrim Ds -] 1 tab PO BID #14 tablet - Follow up/Referral - Patient Discharge Instructions Patient Printed Discharge Instructions: DI for Incision and Drainage of a Skin Abscess Additional Instructions: Keep dressing on overnight. Warm compresses 15-20 minutes at a time 3-4 times a day. warm showers. keep packing in place. you may change the outside guaze if it gets soiled Complete course of antibiotic therapy as prescribed Return to ED 2 days for a wound evaluation and pack removal. Return to ED immediately if any signs of infection such as fever, increasing pain, swelling, streaking redness, or if symptoms worsen or any concerns. - Post Discharge Activity Work/Back to School Note: Back to Work
== END 2019-08-23 03:55 | disposition home or self-care (01) ==
LOC: JER 01:23
PROC: 0J9L0ZZ Drainage of Right Upper Leg Subcutaneous Tissue and Fascia, Open Approach (ICD-10-PCS; principal; 2019-08-23)
DX: L02.415 Cutaneous abscess of right lower limb (principal)
CPT/HCPCS: 99282-25

== ENCOUNTER 2019-10-09 00:55 | Emergency (ER) | payer BC, OTHER ==
[2019-10-09 01:20] VITALS: TEMP 97; BMI 28.1
--- NOTE | 2019-10-09 02:02 | PDOC ---
History of Present Illness - General Chief Complaint: Pain, Acute Stated Complaint: ABD PAIN Time Seen by Provider: 10/09/19 01:57 - History of Present Illness Initial Comments: HPI: 34yo M with no reported PMH presenting with nausea, vomiting, and abdominal pain. Patient states his symptoms started around 3pm. He has had about 20 episodes of bilious nonbloody vomit and 20 episodes of nonbloody brown water diarrhea. No history of surgeries. Feels abdominal pain when he vomits. Has not taken anything for his pain. Had Malagasy food last night. Is a daily marijuana smoker. Denies urinary symptoms, sick contacts, or recent travel. No fever, but endorses chills. ROS: Constitutional: no fever, +chills HEENT: no throat pain, no dysphagia Cardiovascular: no chest pain, no palpitations Respiratory: no cough, no shortness of breath Gastrointestinal: +vomiting, +diarrhea Genitourinary: no dysuria, no hematuria Musculoskeletal: no myalgia, no arthralgia Skin: no rash, no itching Neurologic: no headache, no weakness Psych: no agitation, no anxiety PE: General: Awake, alert, and fully oriented, in no acute distress Head: No signs of trauma Eyes: EOMI, sclera anicteric ENT: Moist mucus membranes Neck: Normal ROM, supple Lungs: Lungs clear, Normal breath sounds Cardio: Regular rhythm, S1 and S2 present Abdomen: Soft, nontender. No guarding, no rebound, no masses Extremities: Normal range of motion, Distal pulses present SKIN: Warm, Dry, normal turgor Neurologic: Cranial nerves II through XII grossly intact. Normal speech ED Course/MDM: DDX including but not limited to gastroenteritis, gastritis, viral syndrome Labs Zofran Fluids Pepcid 10/09/19 02:02 CBC WBC 13.1 K/mm3 (4.0-10.0) H 10/09/19 03:20 RBC 4.72 M/mm3 (4.00-5.60) 10/09/19 03:20 Hgb 13.5 GM/dL (11.7-16.9) 10/09/19 03:20 Hct 41.3 % (35.4-49) 10/09/19 03:20 MCV 87.4 fl (80-96) 10/09/19 03:20 MCH 28.5 pg (25.7-33.7) 10/09/19 03:20 MCHC 32.6 g/dl (32.0-35.9) 10/09/19 03:20 RDW 13.4 % (11.9-15.9) 10/09/19 03:20 Plt Count 239 K/MM3 (134-434) 10/09/19 03:20 MPV 7.6 fl (7.5-11.1) 10/09/19 03:20 Absolute Neuts (auto) 12.2 K/mm3 (1.5-8.0) H 10/09/19 03:20 Neutrophils % 93.3 % (42.8-82.8) H 10/09/19 03:20 Neutrophils % (Manual) 97.1 % (42.8-82.8) H 10/09/19 03:20 Band Neutrophils % 0.0 % 10/09/19 03:20 Lymphocytes % 3.1 % (8-40) L D 10/09/19 03:20 Lymphocytes % (Manual) 0.7 % (8-40) L 10/09/19 03:20 Monocytes % 3.2 % (3.8-10.2) L 10/09/19 03:20 Monocytes % (Manual) 0 % (3.8-10.2) L 10/09/19 03:20 Eosinophils % 0.1 % (0-4.5) 10/09/19 03:20 Eosinophils % (Manual) 0.0 % (0-4.5) 10/09/19 03:20 Basophils % 0.3 % (0-2.0) 10/09/19 03:20 Basophils % (Manual) 0.0 % (0-2.0) 10/09/19 03:20 Myelocytes % (Man) 0 % (0-2) 10/09/19 03:20 Promyelocytes % (Man) 0 % (0-2) 10/09/19 03:20 Blast Cells % (Manual) 0 % (0-0) 10/09/19 03:20 Nucleated RBC % 5 % (0-0) H 10/09/19 03:20 Metamyelocytes 2 % (0-2) 10/09/19 03:20 Hypochromia 0 10/09/19 03:20 Platelet Estimate Normal 10/09/19 03:20 Polychromasia 0 10/09/19 03:20 Poikilocytosis 0 10/09/19 03:20 Anisocytosis 1+ 10/09/19 03:20 Microcytosis 1+ 10/09/19 03:20 Macrocytosis 0 10/09/19 03:20 Mild leukocytosis CMP Sodium 139 mmol/L (136-145) 10/09/19 03:20 Potassium 4.2 mmol/L (3.5-5.1) 10/09/19 03:20 Chloride 107 mmol/L (98-107) 10/09/19 03:20 Carbon Dioxide 28 mmol/L (21-32) 10/09/19 03:20 Anion Gap 4 MMOL/L (8-16) L 10/09/19 03:20 BUN 20.0 mg/dL (7-18) H 10/09/19 03:20 Creatinine 1.1 mg/dL (0.55-1.3) 10/09/19 03:20 Est GFR (CKD-EPI)AfAm 99.57 10/09/19 03:20 Est GFR (CKD-EPI)NonAf 85.91 10/09/19 03:20 Random Glucose 128 mg/dL (74-106) H 10/09/19 03:20 Calcium 9.5 mg/dL (8.5-10.1) 10/09/19 03:20 Total Bilirubin 1.0 mg/dL (0.2-1) 10/09/19 03:20 AST 31 U/L (15-37) 10/09/19 03:20 ALT 29 U/L (13-61) 10/09/19 03:20 Alkaline Phosphatase 52 U/L (45-117) 10/09/19 03:20 Total Protein 7.9 g/dl (6.4-8.2) 10/09/19 03:20 Albumin 4.4 g/dl (3.4-5.0) 10/09/19 03:20 Lipase 59 U/L (73-393) L 10/09/19 03:20 Electrolytes unremarkable Normal Cr No transaminitis Normal lipase Presentation consistent with gastroenteritis; low suspicion for acute abdominal pathology as patient is without pain on exam Patient feeling better Passed po challenge Stable for discharge Past History - Past Medical History Allergies/Adverse Reactions: Allergies Allergy/AdvReac Type Severity Reaction Status Date / Time No Known Allergies Allergy Verified 10/09/19 01:06 Home Medications: Ambulatory Orders Clindamycin [Cleocin -] 300 mg PO TID #21 capsule 05/16/18 Ibuprofen 800 mg PO Q8H PRN #20 tablet 05/16/18 Pantoprazole Sodium [Protonix -] 40 mg PO DAILY #14 tablet.ec 05/20/18 Cephalexin 250 mg PO QID #30 capsule 08/23/19 Sulfamethoxazole/Trimethoprim [Bactrim Ds -] 1 tab PO BID #14 tablet 08/23/19 COPD: No - Surgical History Abdominal Surgery: No Appendectomy: No Cardiac Surgery: No Cholecystectomy: No Gastric Stapling: No GI Surgery: No Lung Surgery: No Neurologic Surgery: No Orthopedic Surgery: No - Immunization History Immunization Up to Date: Yes - Psycho Social/Smoking Cessation Hx Smoking History: Never smoked Have you smoked in the past 12 months: No Number of Cigarettes Smoked Daily: 10 Information on smoking cessation initiated: No 'Breaking Loose' booklet given: 07/23/16 Hx Alcohol Use: No Drug/Substance Use Hx: No Substance Use Type: None *Physical Exam - Vital Signs Last Vital Signs Temp Pulse Resp BP Pulse Ox 97.0 F L 99 H 18 104/74 99 10/09/19 01:06 10/09/19 01:06 10/09/19 01:06 10/09/19 01:06 10/09/19 01:06 ED Treatment Course - LABORATORY CBC & Chemistry Diagram: 10/09/19 03:20 10/09/19 03:20 Discharge - Discharge Information Problems reviewed: Yes Clinical Impression/Diagnosis: Gastroenteritis Condition: Stable Disposition: HOME - Follow up/Referral - Patient Discharge Instructions Patient Printed Discharge Instructions: Nausea and Vomiting-Adult Additional Instructions: You came into the emergency department for abdominal pain. Labs did not indicate acute pathology Follow-up with your primary care provider within 72 hours to discuss this ED visit and to further evaluate your symptoms. Call today or tomorrow morning and make an appointment. Your workup is not complete until you do so. Immediate medical attention is required if you develop: high fevers, persistent nausea, vomiting, or any new or concerning symptoms. If you think you are having an emergency, call for emergency medical services or present to the emergency department right away. - Post Discharge Activity Work/Back to School Note: Back to Work
[2019-10-09] MEDS ORDERED: SODIUM CHLORIDE 1,000 ML IV STA (02:13)
[2019-10-09] MEDS ORDERED: ONDANSETRON 4 MG/2 ML VIAL IVPUSH ONE (02:13)
[2019-10-09] MEDS ORDERED: FAMOTIDINE 20 MG/50 ML IVPB 20 MG/50 ML MG IVPB ONE ×2 (02:13→03:25)
--- NOTE | 2019-10-09 03:15 | PDOC ---
Attending Attestation - Resident Resident Name: Isa Masters - ED Attending Attestation I have performed the following: I have examined & evaluated the patient, The case was reviewed & discussed with the resident, I agree w/resident's findings & plan - HPI HPI: 10/09/19 21:37 Pt comes with abd pain and N/V/D He has no fevers and states that he feels weak and dehydrated - Physicial Exam PE: 10/09/19 21:38 Agree with resident exam afebrile heart and lungs normal abd soft NT ND neuro no gross focal deficits. - Medical Decision Making 10/09/19 05:08 Pt has stomach virus; HR vitals normal. He is feeling better. WBC is 13+ and he has a shift. Stable for discharge 10/09/19 21:38 Hydrated and he feels better
[2019-10-09] MEDS ORDERED: ONDANSETRON 4 MG/2 ML VIAL ONE (03:25)
[2019-10-09 03:49] LABS: BASO % 0.3 % (0-2.0); EOS % 0.1 % (0-4.5); HEMATOCRIT 41.3 % (35.4-49); HEMOGLOBIN 13.5 GM/dL (11.7-16.9); LYMPH % 3.1 % (8-40); MCH 28.5 pg (25.7-33.7); MCHC 32.6 g/dl (32.0-35.9); MEAN CELL VOLUME 87.4 fl (80-96); MEAN PLT VOLUME 7.6 fl (7.5-11.1); MONO % 3.2 % (3.8-10.2); NEUT % 93.3 % (42.8-82.8); PLATELET COUNT 239 K/MM3 (134-434); RBC 4.72 M/mm3 (4.00-5.60); RDW 13.4 % (11.9-15.9); WHITE BLOOD COUNT 13.1 K/mm3 (4.0-10.0)
[2019-10-09 04:18] LABS: ALBUMIN 4.4 g/dl (3.4-5.0); CALCIUM 9.5 mg/dL (8.5-10.1); CREATININE 1.1 mg/dL (0.55-1.3); POTASSIUM 4.2 mmol/L (3.5-5.1); TOT PROT 7.9 g/dl (6.4-8.2)
[2019-10-09 04:49] LABS: ANISOCYTOSIS 1+; MACROCYTOSIS 0; PLATELET ESTIMATE NORMAL
[2019-10-09 06:10] VITALS: BP 116/89; PULSE 86
== END 2019-10-09 05:40 | disposition home or self-care (01) ==
LOC: JER 00:55
PROC: 3E033GC Introduction of Other Therapeutic Substance into Peripheral Vein, Percutaneous Approach (ICD-10-PCS; principal; 2019-10-09)
PROC: 3E033GC Introduction of Other Therapeutic Substance into Peripheral Vein, Percutaneous Approach (ICD-10-PCS; 2019-10-09)
DX: K52.9 Noninfective gastroenteritis and colitis, unspecified (principal)
CPT/HCPCS: 36415; 80053; 83690; 85025; 99284-25; J7030

== ENCOUNTER 2021-05-23 19:11 | Emergency (ER) | payer OTHER ==
[2021-05-23] MEDS ORDERED: SODIUM CHLORIDE 1,000 ML IV STA (20:04)
[2021-05-23] MEDS ORDERED: ACETAMINOPHEN 1000 MG/100 ML VIAL (NON FORMULARY) IVPB ONE (20:04)
[2021-05-23 20:18] VITALS: BP 102/61; PULSE 88; TEMP 98.2; BMI 26.6
[2021-05-23] MEDS ORDERED: ACETAMINOPHEN INJECTION 100 ML IVPB ONE (20:26)
[2021-05-23 21:08] LABS: BASO % 0.5 % (0-2.0); EOS % 2.8 % (0-4.5); HEMATOCRIT 39.6 % (35.4-49); LYMPH % 9.9 % (8-40); MCH 28.9 pg (25.7-33.7); MCHC 32.7 g/dl (32.0-35.9); MEAN CELL VOLUME 88.1 fl (80-96); MEAN PLT VOLUME 7.9 fl (7.5-11.1); MONO % 6.5 % (3.8-10.2); NEUT % 80.3 % (42.8-82.8); PLATELET COUNT 240 10^3/uL (134-434); RBC 4.49 M/mm3 (4.00-5.60); RDW 13.8 % (11.9-15.9)
[2021-05-23 21:27] LABS: ALBUMIN 3.6 g/dl (3.4-5.0); CALCIUM 8.9 mg/dL (8.5-10.1)
[2021-05-23 21:28] LABS: BLOOD UREA NITROGEN 5.6 mg/dL (7-18)
[2021-05-23 21:32] LABS: BILIRUBIN,TOTAL 0.4 mg/dL (0.2-1); TOT PROT 7.1 g/dl (6.4-8.2)
== END 2021-05-23 23:02 | disposition home or self-care (01) ==
LOC: JER 19:11 → JCOVINFU 19:11
PROC: 3E033NZ Introduction of Analgesics, Hypnotics, Sedatives into Peripheral Vein, Percutaneous Approach (ICD-10-PCS; principal; 2021-05-23)
PROC: 3E0337Z Introduction of Electrolytic and Water Balance Substance into Peripheral Vein, Percutaneous Approach (ICD-10-PCS; 2021-05-23)
DX: Z11.52 Encounter for screening for COVID-19 (principal)
CPT/HCPCS: 36415; 80053; 85025; 99284-25; C9803; J0131; U0003; U0005

== ENCOUNTER 2022-02-04 01:07 | Emergency (ER) | payer OTHER ==
[2022-02-04 01:40] VITALS: TEMP 98.9; BMI 28.8
[2022-02-04] MEDS ORDERED: CLINDAMYCIN 600MG PREMIX IVPB 600 MG/50 ML BAG IVPB ONE ×2 (02:34→02:44)
[2022-02-04 03:36] LABS: BASO % 0.3 % (0-2.0); EOS % 0.7 % (0-4.5); HEMATOCRIT 40.6 % (35.4-49); HEMOGLOBIN 13.4 GM/dL (11.7-16.9); LYMPH % 21.5 % (8-40); MCH 28.9 pg (25.7-33.7); MEAN CELL VOLUME 87.4 fl (80-96); MEAN PLT VOLUME 7.6 fl (7.5-11.1); MONO % 8.5 % (3.8-10.2); PLATELET COUNT 269 10^3/uL (134-434); RBC 4.64 M/mm3 (4.00-5.60); RDW 14.3 % (11.9-15.9); WHITE BLOOD COUNT 10.4 K/mm3 (4.0-10.0)
[2022-02-04 03:54] LABS: CALCIUM 9.3 mg/dL (8.5-10.1)
[2022-02-04 03:55] LABS: BLOOD UREA NITROGEN 11.6 mg/dL (7-18)
[2022-02-04 04:42] VITALS: BP 110/60; PULSE 92
== END 2022-02-04 04:44 | disposition short-term general hospital (02) ==
LOC: JER 01:07
PROC: 3E033GC Introduction of Other Therapeutic Substance into Peripheral Vein, Percutaneous Approach (ICD-10-PCS; principal; 2022-02-04)
DX: K04.7 Periapical abscess without sinus (principal)
CPT/HCPCS: 0241U-QW; 36415; 70490-TC; 80048; 85025; 99285-25

== ENCOUNTER 2022-08-04 23:28 | Emergency (ER) | payer OTHER ==
[2022-08-04 23:35] VITALS: BP 113/68; PULSE 74; RESP 16; TEMP 98.2; BMI 26.6
[2022-08-04] MEDS ORDERED: LIDOCAINE HCL 1%, 10 MG/ML (20ML VIAL) ONE (23:35)
== END 2022-08-04 23:54 | disposition home or self-care (01) ==
LOC: FER 23:28
PROC: 0H91XZZ Drainage of Face Skin, External Approach (ICD-10-PCS; principal; 2022-08-04)
DX: L02.01 Cutaneous abscess of face (principal)
CPT/HCPCS: 87070; 87205; 99283-25

== ENCOUNTER 2022-08-12 00:17 | Emergency (ER) | payer OTHER ==
[2022-08-12 00:24] VITALS: BP 116/61; PULSE 88; RESP 18; TEMP 99; BMI 26.6
[2022-08-12] MEDS ORDERED: IBUPROFEN 600 MG TABLET (FP) PO ONE ×2 (00:24→00:25)
== END 2022-08-12 00:33 | disposition home or self-care (01) ==
LOC: FER 00:17
DX: J06.9 Acute upper respiratory infection, unspecified (principal); B34.9 Viral infection, unspecified
CPT/HCPCS: 0241U-QW; 99283-25